=== PATIENT | male | born 2000 | race Hispanic/Latino ===

== ENCOUNTER 2020-01-03 08:03 | Emergency (ER) | payer OTHER ==
[~2020-01-03] VITALS: Ht 175.3 cm; Wt 95.5 kg
[2020-01-03 08:13] VITALS: BP 139/66
[2020-01-03] MEDS ORDERED: ACET-683 PO (08:23)
[2020-01-03] MEDS ORDERED: IBUPROFEN 600 MG TAB PO ONE (08:30)
--- NOTE | 2020-01-03 08:46 | REP ---
Clinical: Cough. Technique: PA and lateral. Findings: Mediastinum and cardiac silhouette are normal. No focal consolidation, effusion, or pneumothorax. Skeletal structures intact. Impression: No focal consolidation. Electronically Signed by Teodoro Simpson MD 01/03/2020 08:37 A
[2020-01-03 09:19] LABS: INFLUENZA A AMPLIFICATION NEGATIVE (NEGATIVE); INFLUENZA B AMPLIFICATION POSITIVE (NEGATIVE)
[2020-01-03] MEDS ORDERED: BENZ200C70 PO (10:07)
[2020-01-03] MEDS ORDERED: AFRI0.058 (10:07)
[2020-01-03] MEDS ORDERED: IBUP-1022 PO (10:07)
== END 2020-01-03 10:16 | disposition home or self-care (01) ==
LOC: M ED 08:03
DX: J10.89 Influenza due to other identified influenza virus with other manifestations (principal)

== ENCOUNTER 2022-01-18 23:24 | Inpatient (IN) | payer OTHER ==
[~2022-01-18] VITALS: Ht 175.3 cm; Wt 100.0 kg
[~2022-01-18 23:24] MED LIST: ACET-683 PO; AFRI0.058; BENZ200C70 PO; IBUP-1022 PO
[2022-01-19] MEDS ORDERED: OLANZapine ORAL DISINTEGRATING TAB 5MG PO PRN (00:55)
[2022-01-19] MEDS ORDERED: MOM 30ML SUSPENSION UDC PO PRN (00:55)
[2022-01-19] MEDS ORDERED: ACETAMINOPHEN TAB 650MG DOSE (2X325MG) PO PRN (00:55)
[2022-01-19] MEDS ORDERED: traZODone 50 MG TAB PO PRN (00:55)
[2022-01-19] MEDS ORDERED: MAALOX 30 ML SUSP *UDC PO PRN (00:55)
[2022-01-19] MEDS ORDERED: HOME MED LIST COMPLETE! XX SCH (01:40)
[2022-01-19 03:03] VITALS: BP 167/81
[2022-01-19] MEDS ORDERED: LORazepam 1 MG TAB PO ONE (09:45)
[2022-01-19] MEDS: OLANZapine 5 MG TAB PO SCH ×2 (10:07→20:52)
[2022-01-19 16:05] VITALS: BP 127/69
[2022-01-20 05:54] VITALS: BP 128/62
[2022-01-20 07:21] LABS: CHOLESTEROL RISK RATIO 7.5 (<5)
[2022-01-20] MEDS: busPIRone 5 MG TAB PO SCH ×2 (08:38→21:34)
[2022-01-20] MEDS: OLANZapine 5 MG TAB PO SCH ×2 (08:39→21:34)
[2022-01-20 16:33] VITALS: BP 134/63
[2022-01-21 06:26] VITALS: BP 138/63
[2022-01-21] MEDS: busPIRone 5 MG TAB PO SCH ×2 (09:48→21:15)
[2022-01-21] MEDS: OLANZapine 5 MG TAB PO SCH ×2 (09:48→21:15)
[2022-01-21] MEDS ORDERED: BUSP5TA PO (10:55)
[2022-01-21 19:24] VITALS: BP 141/94
[2022-01-22 06:27] VITALS: BP 118/56
[2022-01-22] MEDS: busPIRone 5 MG TAB PO SCH (08:15)
[2022-01-22] MEDS: OLANZapine 5 MG TAB PO SCH (08:15)
== END 2022-01-22 11:38 | disposition home or self-care (01) | DRG 881 ==
LOC: M ED 23:24 → M ED INP 23:25 → M PSY 01-19 02:49
PROVIDERS: ADMIT Student in an Organized Health Care Education/Training Program; ATTEND Student in an Organized Health Care Education/Training Program
DX: F32.A Depression, unspecified (principal); F16.14 Hallucinogen abuse with hallucinogen-induced mood disorder; Z87.81 Personal history of (healed) traumatic fracture; M25.511 Pain in right shoulder